=== PATIENT | female | born 1965 | race Caucasian/White ===

== ENCOUNTER → 2017-03-26 | Outpatient (CLI) | payer OTHER | LOC: CIMAGING 09:25 | PROVIDERS: ATTEND Specialist | DX: Z12.31 Encounter for screening mammogram for malignant neoplasm of breast (principal) | CPT/HCPCS: G0202 ==

== ENCOUNTER → 2018-11-20 | Outpatient (CLI) | payer OTHER | LOC: CIMAGING 12:44 ==